=== PATIENT | male | born 1975 | race Caucasian/White ===

== ENCOUNTER → 2018-03-25 | Outpatient (CLI) | payer BC | END | disposition home or self-care (01) | LOC: LAB 03-24 07:15 | DX: E03.8 Other specified hypothyroidism (principal); Z82.49 Family history of ischemic heart disease and other diseases of the circulatory system ==

== ENCOUNTER 2018-09-30 09:16 | Emergency (ER) | payer BC ==
[~2018-09-30] VITALS: Ht 188 cm; Wt 111.1 kg
== END 2018-09-30 14:26 | disposition home or self-care (01) ==
LOC: ER 09:16
DX: S22.42XA Multiple fractures of ribs, left side, initial encounter for closed fracture (principal); S05.12XA Contusion of eyeball and orbital tissues, left eye, initial encounter; W05.2XXA Fall from non-moving motorized mobility scooter, initial encounter; Y93.89 Activity, other specified; Y92.413 State road as the place of occurrence of the external cause; Y99.8 Other external cause status

== ENCOUNTER 2018-12-31 08:46 | Emergency (ER) | payer BC ==
[~2018-12-31] VITALS: Ht 188 cm; Wt 112.5 kg
[2018-12-31] MEDS ORDERED: PROVENTIL HFA6.7 GM (08:58)
[2018-12-31] MEDS ORDERED: FLOVENT HFA10.6 GM (08:58)
[2018-12-31] MEDS ORDERED: DICLOFENAC SODI50 MG PO (09:41)
[2018-12-31] MEDS ORDERED: KNEE STABILIZE1 EACH TOP (09:41)
== END 2018-12-31 10:27 | disposition home or self-care (01) ==
LOC: ER 08:46
DX: M67.461 Ganglion, right knee (principal)

== ENCOUNTER → 2019-03-01 | Emergency (ER) | payer BC ==
[~2019-03-01] VITALS: Ht 188 cm; Wt 109.8 kg
[~2019-03-01] MED LIST: DICLOFENAC SODI50 MG PO; FLOVENT HFA10.6 GM; KNEE STABILIZE1 EACH TOP; PROVENTIL HFA6.7 GM; XARELTO20 MG
== END | disposition home or self-care (01) ==
LOC: ER 15:20
DX: I87.2 Venous insufficiency (chronic) (peripheral) (principal); M79.605 Pain in left leg

== ENCOUNTER 2019-04-20 11:51 | Outpatient (CLI) | payer BC | END 2019-04-20 13:42 | disposition home or self-care (01) | LOC: NUCLEAR 11:51 | DX: I82.402 Acute embolism and thrombosis of unspecified deep veins of left lower extremity (principal) ==

== ENCOUNTER 2019-04-21 11:26 | Outpatient (CLI) | payer BC | END 2019-04-21 11:34 | disposition home or self-care (01) | LOC: NUCLEAR 11:26 | DX: I82.402 Acute embolism and thrombosis of unspecified deep veins of left lower extremity (principal); D68.69 Other thrombophilia; I73.9 Peripheral vascular disease, unspecified ==